=== PATIENT | female | born 1995 | race Caucasian/White ===

== ENCOUNTER 2017-05-27 06:05 | Day surgery (SDC) | payer OTHER ==
[2017-05-26 15:34] VITALS: BMI 20.5
--- NOTE | 2017-05-27 05:56 | HP ---
DATE OF ADMISSION: 05/27/2017 HISTORY OF PRESENT ILLNESS: This is a 21-year-old female with abdominal pain, diarrhea. The patient has symptoms since 03/2017. Her symptoms are mild to begin with, but recently began having worsening symptoms. She had seen her primary care doctor. The patient was advised to wait for a while. Her symptoms persisted. She had loose stools for few days and also the stools are thin at times_. She has a poor appetite. She lost 9 pounds. She had no fever, night sweats. She has a history of rectal bleeding off and on. The patient comes for a colonoscopy because of abdominal pain, diarrhea, rectal bleeding, etc. ALLERGIES: None. SOCIAL HISTORY: The patient does not smoke or drink alcohol. MEDICAL ILLNESSES: None. SURGERIES: 1. Status post appendectomy. 2. Right knee arthroscopic surgeries.. 4. LMP was 05/19/2017. PHYSICAL EXAMINATION: GENERAL: Appears comfortable. VITAL SIGNS: Pulse is 70, blood pressure 130/70. HEENT: Conjunctivae are clear. CARDIOVASCULAR SYSTEM: First and second heart sounds normal. LUNGS: Clear to auscultation. ABDOMEN: Soft to palpate. Abdomen is tender across the lower abdomen. There is no rebound or guarding. ADMITTING DIAGNOSES: Abdominal pain, diarrhea, hematochezia. She also has history of weight loss. PLAN: Colonoscopy. BRISA
[2017-05-27] MEDS ORDERED: Propofol 200 MG/20 ML VIAL ONE (07:40)
--- NOTE | 2017-05-27 14:10 | OP ---
DATE OF PROCEDURE: 05/27/2017 SURGEON: Denita Baca M.D. OPERATIVE PROCEDURE: Ileo-colonoscopy. PREOPERATIVE DIAGNOSES: This is a 21-year-old female with abdominal pain, diarrhea, hemat ochezia, history of weight loss of 9 pounds. The patient is undergoing colonoscopy. POSTOPERATIVE DIAGNOSIS: Normal colonoscopy. PROCEDURE IN DETAIL: The patient was placed on her left lateral position and was given sedation by Anesthesia Department. A rectal exam was done. The scope was advanced into the rectum. No lesions were felt on rectal exam. A [employer] video colonoscope was introduced into the rectum and advanced a ll the way into the cecum. The mucosa appeared normal throughout the colon with normal vascular pat tern. The appendiceal orifice, ileocecal valve, and cecum, no pathology seen. The scope was advanc ed to terminal ileum. The ileal mucosa appeared normal. Withdrawal of scope from the ileum into th e ascending colon, hepatic flexure, no pathology seen. The transverse colon, splenic flexure, desce nding colon, and sigmoid colon, no lesions seen. Retroflexion of the scope in the rectum showed no lesions. ENDOSCOPIC IMPRESSION: Normal ileal colonoscopy. DISCHARGE PLANNING: This is a 21-year-old female with history of abdominal cramping, diar jessica, and hematochezia over the last 2 months. The patient also has history of weight loss of 9 james nds. With patient having the above symptoms, it was my concern the patient could have IBD; however, the colonoscopy was completely normal.
== END 2017-05-27 08:50 | disposition home or self-care (01) ==
LOC: SDC 06:05
PROVIDERS: ATTEND Internal Medicine Gastroenterology
PROC: 0DJD8ZZ Inspection of Lower Intestinal Tract, Via Natural or Artificial Opening Endoscopic (ICD-10-PCS; principal; 2017-05-27)
DX: R10.9 Unspecified abdominal pain (principal); K92.1 Melena; R19.7 Diarrhea, unspecified; Z98.890 Other specified postprocedural states
CPT/HCPCS: J2704